=== PATIENT | male | born 1985 | race Caucasian/White ===

== ENCOUNTER 2018-05-13 08:47 | Emergency (ER) | payer SELFPAY ==
--- NOTE | 2018-05-13 09:10 | ED ---
GI/ HPI - HPI Summary HPI Summary: This pt is a 32 y/o male presenting to [facility] c/o left flank pain since this morning. Pt reports he has been having intermittent left flank pain for the past couple of months. Today his left flank pain was worse and woke him up from sleep. He notes his pain radiates to his left testicle. Pt states he was having difficulty urinating this morning. Denies penile swelling and penile discharge. Denies abd pain, hematuria, nasuea, vomiting, chest pain, SOB, fever, chills. Pt with hx of kidney stones. - History of Current Complaint Chief Complaint: EDFlankPain Time Seen by Provider: 05/13/18 08:56 Stated Complaint: LT FLANK PAIN Hx Obtained From: Patient Onset/Duration: Started Hours Ago, Still Present Timing: Lasting Hours Current Severity: Mild Pain Intensity: 3 Location of Pain: Flank - left Pain Radiates to: Inguinal - left Associated Signs and Symptoms: Negative: Nausea, Vomiting, Fever, Hematuria, Chills, Abdominal Pain, Chest Pain Aggravating Factor(s): Nothing Alleviating Factor(s): Nothing - Allergy/Home Medications Allergies/Adverse Reactions: Allergies Allergy/AdvReac Type Severity Reaction Status Date / Time No Known Allergies Allergy Verified 05/13/18 08:53 PMH/Surg Hx/FS Hx/Imm Hx Endocrine/Hematology History: Denies: Hx Diabetes Cardiovascular History: Denies: Hx Hypertension History: Reports: Hx Kidney Stones Infectious Disease History: No Infectious Disease History: Denies: Traveled Outside the [place] in Last 30 Days - Family History Known Family History: Negative: Cardiac Disease, Hypertension, Renal Disease - Social History Alcohol Use: None Substance Use Type: Reports: None Smoking Status (MU): Never Smoked Tobacco Review of Systems Negative: Fever, Chills Negative: Chest Pain Negative: Shortness Of Breath Negative: Abdominal Pain, Vomiting, Nausea Genitourinary: Other - POS: difficulty urinating Positive: flank pain - left. Negative: hematuria All Other Systems Reviewed And Are Negative: Yes Physical Exam - Summary Physical Exam Summary: Appearance: Well appearing, no pain distress Skin: warm, dry, reflects adequate perfusion Head/face: normal Eyes: EOMI, GAUDENCIO ENT: normal Neck: supple, nontender Respiratory: CTA, breath sounds present Cardiovascular: RRR, pulses symmetrical Abdomen: nontender, soft. No CVA tenderness. Bowel: present Musculoskeletal: normal, strength/ROM intact Neuro: normal, sensory motor intact, A&Ox3 Triage Information Reviewed: Yes Vital Signs On Initial Exam: Initial Vitals Temp Pulse Resp BP Pulse Ox 97.5 F 79 16 160/89 100 05/13/18 08:49 05/13/18 08:49 05/13/18 08:49 05/13/18 08:49 05/13/18 08:49 Vital Signs Reviewed: Yes Diagnostics - Vital Signs Vital Signs Temp Pulse Resp BP Pulse Ox 05/13/18 08:49 97.5 F 79 16 160/89 100 - Laboratory Result Diagrams: 05/13/18 09:39 05/13/18 09:39 Lab Statement: Any lab studies that have been ordered have been reviewed, and results considered in the medical decision making process. - CT CT abdomen/Pelvis CT Interpretation Completed By: Radiologist Summary of CT Findings: IMPRESSION: Mild to moderate LEFT hydroureteronephrosis is traced to a 5 mm stone approximate 1 cm from the ureteral vesicular junction. Dr. Xiong has reviewed this report. Re-Evaluation - Re-Evaluation First Eval Re-Evaluation Time: 11:21 Comment: I reviewed the CT results with the pt. Pt will be discharged home with follow up from urologist. GIGU Course/Dx - Course Assessment/Plan: Pt is a 32 y/o male, with hx of kidney stones, who presents to [facility] c/o left flank pain since this morning. Pt reports he has been having intermittent left flank pain for the past couple of months. Today his left flank pain was worse and woke him up from sleep. He notes his pain radiates to his left testicle. Pt states he was having difficulty urinating this morning. Blood work, urinalysis, and CT abdomen/pelvis were obtained. CT abdomen/pelvis shows mild to moderate LEFT hydroureteronephrosis is traced to a 5 mm stone approximate 1 cm from the ureteral vesicular junction. Pt will be discharged home with follow up from urologist. He was given prescriptions for Motrin, Percocet, and Flomax. He was instructed to return to the ED for any worsening or new symptoms. - Diagnoses Differential Diagnoses - Male: Diverticulitis, Pancreatitis, Renal Colic, Urinary Tract Infection Provider Diagnoses: Renal calculi, Renal colic Discharge - Sign-Out/Discharge Documenting (check all that apply): Patient Departure - Discharge home - Discharge Plan Condition: Stable Disposition: HOME Prescriptions: Ibuprofen TAB* [Motrin TAB* 600 MG] 600 mg PO Q8H PRN #20 tab MDD 3 PRN Reason: Pain Oxycodone HCl/Acetaminophen [Percocet] 1 tab PO TID #10 tab MDD 3 Tamsulosin CAP* [Flomax CAP*] 0.4 mg PO DAILY #20 cap Patient Education Materials: Kidney Stones (ED), Renal Colic (ED) Referrals: Care [facility] [Outside] Clark Peterson MD [Medical Doctor] - Additional Instructions: Please follow up with Dr. Peterson, urologist. RETURN TO THE ED FOR ANY WORSENING OR NEW SYMPTOMS. - Billing Disposition and Condition Condition: STABLE Disposition: Home - Attestation Statements Document Initiated by Saravananibyovani: Yes Documenting Scribe: Rohini Gomez Provider For Whom Scribe is Documenting (Include Credential): Odilon Xiong MD Scribe Attestation: Rohini Hurtado, scribed for Odilon Xiong MD on 05/13/18 at 1140. Scribe Documentation Reviewed: Yes Provider Attestation: The documentation as recorded by the Rohini cano accurately reflects the service I personally performed and the decisions made by , Odilon Xiong MD Status of Scribe Document: Viewed
[2018-05-13 09:45] LABS: Urine Appearance Cloudy; Urine Blood 1+ (Negative); Urine Color Yellow; Urine Ketones Negative (Negative); Urine Protein Negative (Negative); Urine Red Blood Cell 3+(>10/hpf) (Absent); Urine Urobilinogen Negative (Negative); Urine White Blood Cell 1+(6-10/hpf) (Absent)
[2018-05-13 09:45] LABS: ABS Basophils 0 10^3/ul (0-0.2); ABS Eosinophils 0.2 10^3/ul (0-0.6); ABS Lymphocytes 1.7 10^3/ul (1.0-4.8); ABS Monocytes 0.4 10^3/ul (0-0.8); ABS Neutrophils 4.6 10^3/ul (1.5-7.7); ABS Nucleated RBC 0 10^3/ul; Eosinophil % 2.8 %; Hematocrit 44 % (42-52); Hemoglobin 14.9 g/dl (14.0-18.0); Lymphocyte % 24.5 %; Mean Corpuscular HGB Conc 34 g/dl (31-36); Mean Corpuscular Hemoglobin 28 pg (27-31); Mean Corpuscular Volume 83 fL (80-94); Nucleated Red Blood Cells % 0; Platelet Count 240 10^3/ul (150-450); Red Blood Count 5.25 10^6/ul (4.00-5.40); Red Cell Distribution Width 13 % (10.5-15); White Blood Count 6.9 10^3/ul (3.5-10.8)
[2018-05-13 10:02] LABS: EGFR Non-African American 89.7 (>60)
[2018-05-13 10:15] LABS: INR 0.91 (0.77-1.02)
[2018-05-13] MEDS ORDERED: Tamsulosin CAP* 0.4 MG PO ONE ×2 (11:24→11:25)
[2018-05-13 11:38] VITALS: BP 145/88
== END 2018-05-13 11:37 | disposition home or self-care (01) ==
LOC: ED 08:47
DX: N20.0 Calculus of kidney (principal); Z87.442 Personal history of urinary calculi
CPT/HCPCS: 36415; 74176; 80053; 81003; 81015; 83690; 85025; 85610; 85730; 87086; 99282